=== PATIENT | male | born 1955 | race Caucasian/White ===

== ENCOUNTER 2024-11-01 06:11 | Day surgery (SDC) | payer OTHER, SELFPAY ==
[2024-10-25 11:17] VITALS: BMI 21.3
[2024-10-25 11:35] LABS: % Basophils 0.2 % (0-2); % Eosinophils 0.3 % (0-6); % Immature Granulocytes 0.3 % (0-0.5); % Lymphocytes 18.7 % (20.5-51.1); % Monocytes 7.7 % (1.7-9.3); % Neutrophils 72.8 % (42.2-75.2); Absolute Lymphocytes 1.1 10^3/uL (1.2-3.4); Absolute Monocytes 0.5 10^3/uL (0.1-0.6); Absolute Neutrophils 4.3 10^3/uL (1.4-6.5); Hematocrit 43.3 % (39.0-52.0); Hemoglobin 15.1 g/dL (13.0-18.0); Mean Corp Hgb Conc. 34.9 g/dL (33.0-37.0); Mean Corpuscular Hgb 32.7 pg (27.0-31.0); Mean Corpuscular Volume 93.7 fL (80.0-94.0); Mean Platelet Volume 9.6 fL (7.4-10.4); Nucleated Red Blood Cells % 0 % (-); Platelet Count 171 10^3/uL (130-400); Red Blood Cell Count 4.62 10^6/uL (4.70-6.10); Red Cell Dist. Width 12.4 % (11.5-14.5)
[2024-10-25 12:02] LABS: ALT (SGPT) 30 U/L (0-50); AST (SGOT) 25 U/L (17-59); Albumin 3.8 g/dl (3.5-5.0); Alkaline Phosphatase 82 U/L (38-126); Blood Urea Nitrogen 46 mg/dl (9-20); Calcium 9.3 mg/dl (8.4-10.2); Carbon Dioxide 25 mmol/L (22-30); Chloride 104 mmol/L (98-107); Estimated Creatinine Clearance 27 ml/min; Glucose 237 mg/dl (70-99); Potassium 4.4 mmol/L (3.5-5.1); Sodium 139 mmol/L (135-145); Total Bilirubin 0.7 mg/dl (0.2-1.3); Total Protein 6.5 g/dl (6.3-8.2); eGFR 26.05
[2024-11-01] VITALS (13 sets, daily range): BP systolic 145–181; BP diastolic 90–99
[2024-11-01 07:15] LABS: Glucose - Point of Care 248 mg/dl (70-99)
[2024-11-01] MEDS: NSS 1000 IV ×2 (07:40→10:59)
--- NOTE | 2024-11-01 10:34 | ITS.CL.PN ---
[employer] - Procedure Note
Procedure
Procedure Note:
CARDIAC CATHETERIZATION REPORT
Date of Procedure: 11/01/2024
Referring: Andrew Duenas MD, PhD
Indication: Anginal chest pain, known coronary artery disease
PROCEDURE(S)
1. left heart catheterization
2. coronary angiography
3. iFR RCA
ACCESS: 6F right radial artery (closure: radial band)
CATHETERS
1. 6F JR4
2. 6F JL3.5
3. 6F JR4 guide catheter
MODERATE SEDATION: 35 minutes of moderate sedation was utilized. An independent certified medical technician was present to assist with and help manage the patient's level of consciousness and physiologic status.
HEMODYNAMIC DATA
LV 110/60 (EDP 15) mmHg
AO 109/66 (mean 88) mmHg
CORONARY ANGIOGRAPHY
Dominance: Right
LM: Large vessel with mild calcific disease.
LAD: Large vessel giving rise to a small D1 and small D2. There is a widely patent stent in the proximal vessel jailing the D2. There is ELEUTERIO II flow in the D2 branch stable if not improved from 202 angiography.
LCx: Large vessel giving rise to a small OM1 and large caliber OM2. There is mild diffuse disease unchanged from 202 angiography.
RCA: Large vessel giving rise to a moderate caliber RPDA and large caliber RPL branch. There is diffuse heavily calcified disease throughout the proximal to distal RCA with relative sparing of the ostial RCA and true distal RCA. There is diffuse
calcific disease throughout the RPL branch including a focal 80% stenosis in the mid body of the RPL. On direct comparison with 202 angiography, disease is overall unchanged.
iFR of RCA
An Veratta wire was flushed and zeroed outside the body and then advanced to the ostial RCA. The wire introducer was removed and the catheter flushed with saline, after which pressure of the wire and guide were normalized. The wire was advanced to
the distal RPL branch and iFR recorded at 0.88. iFR pullback was performed noting contribution from both the focal RPL stenosis (approximately delta IFR of 0.07) and contribution from the long segment diffuse disease in the proximal to mid vessel
(approximately delta IFR of 0.05). On return to the ostial RCA, iFR appropriately normalized to ~1.0, confirming lack of wire drift.
CONTRAST: 35 mL Visipaque
RADIATION: dose 698 mGy; DAP 62 Gy*cm2; fluoroscopy time 17.1 min
CONCLUSIONS
1. Stable coronary artery disease in a right dominant system as described with widely patent LAD stent and unchanged diffuse calcific disease in the RCA on direct comparison with 2020 angiography.
2. Mildly elevated LV filling pressure and no aortic stenosis.
3. iFR of the RCA demonstrates borderline positive value at 0.88. Of note, the RPL lesion was not previously assessed by iFR and the long segment proximal to mid disease remains iFR negative. I think it is unlikely that the distal RPL branch is
responsible for the patient's symptoms, particularly given that the entire RCA is visually unchanged in appearance compared to 4 years ago. 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
Should this prove unsuccessful, we could consider focal PCI of the distal RPL to start.
RECOMMENDATIONS
1. Increase crestor to 20 mg daily, labs in 1 month
2. Start amlodipine 5 mg daily, consideration of long acting nitrate next
3. 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
Copy to: Dr. Andrew Jackman MD, PhD (visitor use assistant); Barrington Dalton MD (PCP)
Signed: Andrew Jackman MD, PhD
[2024-11-01] MEDS: MORPHINE SULFATE 2 MG IV (10:52)
[2024-11-01] MEDS: NORVASC 5 MG PO (11:26)
[2024-11-06 08:22] LABS: ACT-LR - POC 255 Seconds (116-155)
== END 2024-11-01 14:45 | disposition home or self-care (01) ==
LOC: CATH 06:11
PROVIDERS: ATTENDING PHYSICIAN Student in an Organized Health Care Education/Training Program; FAMILY PHYSICIAN Family Medicine
DX: I25.119 Atherosclerotic heart disease of native coronary artery with unspecified angina pectoris (principal); Z95.5 Presence of coronary angioplasty implant and graft; Z79.82 Long term (current) use of aspirin; Z79.02 Long term (current) use of antithrombotics/antiplatelets; I10 Essential (primary) hypertension; I12.9 Hypertensive chronic kidney disease with stage 1 through stage 4 chronic kidney disease, or unspecified chronic kidney disease; E11.22 Type 2 diabetes mellitus with diabetic chronic kidney disease; N18.30 Chronic kidney disease, stage 3 unspecified
CPT/HCPCS: 93799; 99152; 99153; 36415; 80053; 82962; 85025; 85347; 93005; 93458; C1769; C1894; Q9967